=== PATIENT | male | born 2000 | race Caucasian/White ===

== ENCOUNTER 2021-11-08 16:45 | Emergency (ER) | payer OTHER, SELFPAY ==
[2021-11-08 16:57] VITALS: BP 155/103; PULSE 84; RESP 18; TEMP 36.8; O2SAT 98; BMI 30.5
--- NOTE | 2021-11-08 17:09 | W.ED.GENADLT ---
HPI - General Adult General: Chief complaint: General Medical Stated complaint: belly button pain Time Seen by Provider: 11/08/21 17:04 History of Present Illness: 21-year-old male patient comes in today with complaints of umbilical tenderness. Patient noted 2 days ago that he started having some discomfort. Patient did not notice any eliciting event. Patient has had worsening pain and then would have a diarrhea stool that would improve the pain. Patient denies any chronic medical problems or previous abdominal surgeries. Patient appears nontoxic. Patient appears in no pain at rest. Associated symptoms: Deny chest pain, dyspnea, rash or vomiting Review of Systems General: Reports: 10 or more systems reviewed and unremarkable except in HPI and below Const: Denies: fever(s) Card: Denies: chest pain Resp: Denies: dyspnea GI: Reports: abdominal pain and diarrhea; Denies: vomiting : Denies: difficulty urinating Skin/Breast: Denies: rash Physical Exam Const: COMMON NORMALS: alert HENMT: COMMON NORMALS: normocephalic HEAD & SCALP: normocephalic Neck/C-Spine: COMMON NORMALS: full ROM Resp: COMMON NORMALS: normal respiratory effort and clear to auscultation bilaterally AUSCULTATION: clear to auscultation bilaterally Cardio: COMMON NORMALS: regular rate RATE: regular rate GI: COMMON NORMALS: Soft to palpation PALPATION: Yes Soft to palpation, Yes Tenderness to palpation present (GI) (umbilical), No Guarding due to palpation present (GI), No Rebound tenderness present and Yes Other GI palpation findings present (small reducible umbilical hernia palpated) : COMMON NORMALS: No no CVA tenderness BLADDER/KIDNEY EXAM: No no CVA tenderness Back/Pelvis: COMMON NORMALS: negative for no CVA tenderness Extremity: COMMON NORMALS: normal to inspection Neuro: SENSORIUM/ORIENTATION: Yes alert Skin: COMMON NORMALS: no rashes or lesions noted GENERAL SKIN EXAM: no rashes or lesions noted Course Vital Signs: Vital signs: Vital Signs Temperature 98.2 F 11/08/21 16:57 Pulse Rate 84 11/08/21 16:57 Respiratory Rate 18 11/08/21 16:57 Blood Pressure 155/103 11/08/21 16:57 Pulse Oximetry 98 11/08/21 16:57 [facility] - General Adult Medical Decision Making 21-year-old male patient comes in with some umbilical discomfort. Patient denies any fever, and/or vomiting. Patient does report some diarrhea. On exam abdomen soft with some umbilical tenderness and a palpable small umbilical hernia that easily reduces. No redness or inflammation is noted to the umbilical area. Differential diagnosis includes but not limited to umbilical hernia, gastroenteritis, appendicitis. KUB noted no signs of bowel obstruction. Ultrasound of the abdomen did note a small umbilical hernia without any sign of bowel entrapment. Reviewed exam with patient with recommendations for follow-up with surgeon for consultation regarding umbilical hernia. Case management was requested for assistance with this appointment. No signs of appendicitis or surgical abdomen was otherwise noted. Reviewed recommendations for return to the ER for worsening symptoms or new concerns. Lab Data Radiology Impressions KUB X-Ray 11/08/21 17:14 IMPRESSION: No acute findings. Discharge Plan Discharge Patient Disposition: Home Clinical Impression: Umbilical hernia with obstruction, without gangrene Condition: Stable Prescriptions: Discontinued amoxicillin 875 mg tablet 875 mg PO BID 7 Days Qty: 14 0RF Discharge Orders: Discharge ED (Routine); Ordered 11/08/21 Ordered By: Renan Conteh Discharge Diet: Usual diet Discharge Activity: Increase activity as tolerated Patient Instructions: Umbilical Hernia (ED) Activity Restrictions/Additional Instructions: Light activity until pain resolves. Avoid heavy lifting or straining while you are having pain. Use acetaminophen or ibuprofen for pain. Monitor for fever greater than 100.4, redness in the area, or worsening abdominal pain, you need to be reevaluated for the symptoms. Follow-up with primary care as needed. Return to ER for new concerns. Case management will contact you regarding follow-up with surgeon. Coding Level of Care Code ED [employer] House Attendant for Monica Marks Exam Comprehensive
--- NOTE | 2021-11-08 17:14 | XRR_ITS ---
PROCEDURE INFORMATION: Exam: XR Abdomen Exam date and time: 11/08/2021 5:25 PM Age: 21 years old Clinical indication: Abdominal pain; Other: Belly button; Additional info: Abd pain TECHNIQUE: Imaging protocol: XR of the abdomen. Views: Frontal supine view of the abdomen. 1 View. COMPARISON: No relevant prior studies available. FINDINGS: Gastrointestinal tract: Normal. No bowel dilation. Bones/joints: Unremarkable. XR/XR KUB [id number] IMPRESSION: No acute findings.
--- NOTE | 2021-11-08 17:14 | USR_ITS ---
PROCEDURE INFORMATION: Exam: US Abdomen; Limited Exam date and time: 11/08/2021 5:31 PM Age: 21 years old Clinical indication: Abdominal pain; Periumbilical; Patient HX: Umbilical pain x 1 week; Additional info: Probable umbilical hernia, umbilical pain TECHNIQUE: Imaging protocol: US abdomen. Real time ultrasound with image documentation. Limited exam focused on the region of clinical interest. COMPARISON: CR XR KUB [id number] 11/08/2021 5:25 PM FINDINGS: Soft tissues: 0.8 x 0.9 x 1.5 cm fat containing supraumbilical hernia. There is increased herniation with Valsalva maneuver and partial reduction with relaxation. The mouth of the hernia measures 0.5 cm. No visible bowel within the hernia. US/US abdomen limited [id number] IMPRESSION: 1. 1.5 cm fat containing supraumbilical hernia as discussed above.
[2021-11-08 18:17] VITALS: BP 128/77; PULSE 70; RESP 20; O2SAT 98
== END 2021-11-08 18:19 | disposition home or self-care (01) ==
PROVIDERS: Emergency Provider Nurse Practitioner Family
DX: K42.0 Umbilical hernia with obstruction, without gangrene (principal)
CPT/HCPCS: 74018; 76705; 99283

== ENCOUNTER 2021-12-12 07:23 | Day surgery (SDC) | payer OTHER, SELFPAY ==
[2021-12-11 13:13] VITALS: BMI 31.5
[2021-12-12] VITALS (13 sets, daily range): BP systolic 114–162; BP diastolic 52–109; PULSE 79–102; RESP 14–23; TEMP 36.1–36.9; O2SAT 92–99
[2021-12-12] MEDS: sodium chloride 0.9% 1,000 ML 30 ML IV (07:47)
[2021-12-12] MEDS: acetaminophen 1,000 MG/100 ML PIGGYBACK 400 MG IV (07:47)
--- NOTE | 2021-12-12 08:56 | W.PM.OPSUD ---
Surgery/Procedure H&P Update DATE OF PROCEDURE: December 12, 2021 DATE H&P PERFORMED: 11/15/21 H&P UPDATE INFORMATION: I have reviewed H&P completed within last 30 days, I have examined patient prior to procedure and No changes to prior documentation PREOP DIAGNOSIS: Umbilical hernia PRIMARY INDICATION FOR PROCEDURE: The same PLANNED PROCEDURE: Operation Date: 12/12/21 08:55 Proposed Procedures p Open umbilical hernia repair with poss mesh placement [id number]/K42.9(Not Applicable) - Alexandr Tay MD
--- NOTE | 2021-12-12 09:10 | ANES.PREANE2 ---
Pre-Anesthetic Assessment Height/Weight: Height 1.78 m Weight 99.79 kg Temp Pulse Resp BP Pulse Ox 98.4 F 83 18 162/109 99 12/12/21 07:42 12/12/21 07:42 12/12/21 07:42 12/12/21 07:42 12/12/21 07:42 Preop Diagnosis: Umbilical hernia Operation Date: 12/12/21 08:55 Proposed Procedures p Open umbilical hernia repair with poss mesh placement [id number]/K42.9(Not Applicable) - Alexandr Tay MD Familial anesthetic complications: None Was Beta Violetta taken within 24 hours: N/A Was Clonidine taken within 24 hours: N/A Last intake: Intake Last Liquid Date 12/11/21 Last Liquid Time 19:00 Last Solid Date 12/11/21 Last Solid Time 19:00 Social No alcohol and No tobacco Exam alert, oriented x 3, clear to auscultation bilaterally and regular rate & rhythm Airway Submandibular: within normal limits Cervical ROM: within normal limits Mallampati: Class II Dentition: full Comments: Comments: Moser History/ROS No significant history except as noted Anesthetic Plan ASA status: 1 Anesthesia: General Medications/Allergies Home Medications Medication Instructions Recorded Confirmed Last Taken Type No Known Home Medications 11/15/21 12/12/21 Unknown History Allergies Allergy/AdvReac Type Severity Reaction Status Date / Time No Known Allergies Allergy Verified 12/12/21 07:58 Current Medications Generic Name Dose Route Start Last Admin Trade Name Freq PRN Reason Stop Dose Admin Sodium Chloride 1,000 mls @ 30 mls/hr 12/12/21 07:30 12/12/21 07:47 Sodium Chloride 0.9% IV 12/13/21 07:29 30 mls/hr .Q24H LIAN Administration PFSH Anesthesia Social History Smoking and tobacco status: never smoked Data Anesthesia Cardiac Studies: No Data to Display
[2021-12-12] MEDS: lidocaine 2% INJ 20 mL INJECTION (09:53)
--- NOTE | 2021-12-12 10:02 | P.OP_ITS ---
Operative Report Date of procedure: December 12, 2021 Pre-op diagnosis: Preop Diagnosis Umbilical hernia Post-op diagnosis: same Post-op findings: Fascial defect about centimeter in diameter Procedure done: Open umbilical hernia repair primarily without mesh placement Specimens removed/disposition: Hernia sac and contents Surgeon: Alexandr Tay MD Teacher Of The Hearing Impaired: Surgical ita [place] Circulating nurse Kristine Anesthesia: General (Dr. Dhillon) Estimated blood loss (mL): 5 Procedure: Patient was identified in holding area and the site of the hernia was marked by me ,Patient was brought then to the operating room, general endotracheal anesthesia was administered by the anesthesia provider.prophylactic IV antibiotics were given per protocol Timeout was done verifying the patient's name/date of /planned procedure and destination after the procedure, all were in agreement. SCDs confirmed to be functioning, preoperative antibiotics administered per protocol, and beta casey protocol was confirmed. Prep and drape of the abdomen was done under the usual sterile technique. I started by supraumbilical skin incision,and dissection was carried till the hernia sac was identified and opened,following that trimming of the edges and excising the sac,were sac and contents were sent for pathology.At that point the fascial defect is about a centimeter in diameter, after freeing all the adhesio ns and freeing the overlying fat on top of the fascia,to facilitate primary closure, under direct visualization I was able to use #1 PDS to close the defect primarily, figure of 8 sutures x 2,copious and through irrigation of the wound was then achieved, followed by hemostasis. Deep subdermal 2-0 Vicryl was used for closure followed by 4-0 Monocryl and surgical glue Telfa medium sized Tegaderm Followed by appropraie size Abdominal Binder. Counts of sponges,needles and instruments were completed at the end of the procedure and specimen was verified. Patient tolerated the procedure well and was taken to the recovery area in stable condition after Extubation I was present for the whole entire procedure
--- NOTE | 2021-12-12 10:24 | SUR.PHASEI ---
patient brought to pacu with simple mask in place at 8L and sats at 98%. Patient is asleep, no pain per faces. pt has abd binder in place, abd soft.
--- NOTE | 2021-12-12 10:34 | SUR.PHASEI ---
patient wakes but is still drowsy. placed on room air, sats at 95%.
--- NOTE | 2021-12-12 10:45 | SUR.PHASEI ---
patient states little pain, states he does not want anything for this right now.
[2021-12-12] MEDS: fentaNYL 50 mcg/mL INJ 2mL IVP (10:52)
--- NOTE | 2021-12-12 11:10 | SUR.PHASEI ---
patient transported to ops room 5, report given to jayden jarquin and dominique rn. patient awake but still drowsy, states pain in abd at 5/10. states ready to be back in ops and get water and crackers. pt has abd binder in place, dressings dry and intact. abd soft.
[2021-12-12] MEDS: ondansetron 2 mg/ML SDV 2 mL 4 MG IVP ×2 (11:14→11:56)
--- NOTE | 2021-12-12 14:18 | ANE.PACU2 ---
Inpatient post-anesthesia follow up: Airway intact: Yes Vital signs: Temperature 97.0 F Pulse Rate 79 Respiratory Rate 18 Blood Pressure 117/71 Pulse Oximetry 98 Oxygen Delivery Me thod Room Air Oxygen Flow Rate 8 Fraction of Inspir ed Oxygen Hydration adequate: Yes Nausea and vomiting: No Pain level: 3 Mental status: Baseline
== END 2021-12-12 12:53 | disposition home or self-care (01) ==
PROVIDERS: Visit Provider Surgery
PROC: (CPT 49585; principal; 2021-12-12 08:45)
DX: K42.1 Umbilical hernia with gangrene (principal)
CPT/HCPCS: 49585; 88302; J2001; J2250; J2405; J2704; J3010; J3490; J7030

== ENCOUNTER 2023-08-15 07:00 | Outpatient (CLI) | payer OTHER, SELFPAY ==
[2023-08-15 07:59] LABS: Sperm Immotility 15 % (50-60); Sperm Non-Progressive Motility 5 % (5-10); Sperm Progressive Motility 80 % (31-34); Viscosity Semen Normal; White Blood Count Semen 0-4 /hpf
[2023-08-15 08:00] LABS: Epithelial Count Semen Rare /hpf
[2023-08-15 08:04] LABS: PH Semen 7.5 (7.0-8.0)
[2023-08-15 12:49] LABS: Pathology Referral Yes
== END 2023-08-15 07:01 | disposition home or self-care (01) ==
LOC: LAB 07:01
PROVIDERS: Visit Provider Nurse Practitioner Women's Health
DX: N46.9 Male infertility, unspecified (principal)
CPT/HCPCS: 80503; 89320